=== PATIENT | female | born 1945 | race Caucasian/White ===

== ENCOUNTER → 2016-05-14 | Outpatient (CLI) | payer MEDICARE, OTHER | LOC: KOH-I 12:38 | DX: J44.9 Chronic obstructive pulmonary disease, unspecified (principal); J30.89 Other allergic rhinitis; J31.0 Chronic rhinitis; T50.995A Adverse effect of other drugs, medicaments and biological substances, initial encounter; H10.45 Other chronic allergic conjunctivitis; J30.1 Allergic rhinitis due to pollen; J45.40 Moderate persistent asthma, uncomplicated; R91.1 Solitary pulmonary nodule | CPT/HCPCS: 71250 ==